=== PATIENT | male | born 1970 | race Caucasian/White ===

== ENCOUNTER 2018-03-19 13:33 | Emergency (ER) | payer MEDICAID ==
[~2018-03-19] VITALS: Ht 170.2 cm; Wt 95.2 kg
== END 2018-03-19 14:32 | disposition home or self-care (01) ==
LOC: ED 13:33
DX: S20.212A Contusion of left front wall of thorax, initial encounter (principal); F17.200 Nicotine dependence, unspecified, uncomplicated; V27.4XXA Motorcycle driver injured in collision with fixed or stationary object in traffic accident, initial encounter
CPT/HCPCS: 71101; 99283

== ENCOUNTER 2018-11-07 22:05 | Emergency (ER) | payer MEDICAID ==
[~2018-11-07] VITALS: Ht 170.2 cm; Wt 83.9 kg
[~2018-11-07 22:05] MED LIST: BACTRIM DS TAB1 EACH PO
[2018-11-08] MEDS ORDERED: BACTRIM DS TAB1 EACH PO (00:11)
[2018-11-08] MEDS ORDERED: CEPHALEXIN500 MG PO (00:11)
== END 2018-11-08 00:27 | disposition home or self-care (01) ==
LOC: ED 22:05
DX: L03.211 Cellulitis of face (principal); F43.10 Post-traumatic stress disorder, unspecified; F31.9 Bipolar disorder, unspecified; F17.200 Nicotine dependence, unspecified, uncomplicated
CPT/HCPCS: 87070; 87077; 87186; 99283

== ENCOUNTER 2018-11-09 21:24 | Emergency (ER) | payer MEDICAID ==
[~2018-11-09] VITALS: Ht 170.2 cm; Wt 83.9 kg
[~2018-11-09 21:24] MED LIST changes: +CEPHALEXIN500 MG PO
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
[2018-11-10] MEDS ORDERED: NORCO 5-325 TA1 EACH PO (00:19)
== END 2018-11-10 00:42 | disposition home or self-care (01) ==
LOC: ED 21:24
PROC: 0H91XZZ Drainage of Face Skin, External Approach (ICD-10-PCS; principal; 2018-11-10)
DX: L02.01 Cutaneous abscess of face (principal); F43.10 Post-traumatic stress disorder, unspecified; F31.9 Bipolar disorder, unspecified; F17.200 Nicotine dependence, unspecified, uncomplicated; Z79.899 Other long term (current) drug therapy
CPT/HCPCS: 10060; 80053; 85025; 96361; 96374; 96375; 99283-25; J2270; J2405; J3370; J7030

== ENCOUNTER 2019-09-19 01:01 | Emergency (ER) | payer MEDICAID ==
[~2019-09-19] VITALS: Ht 170.2 cm; Wt 83.9 kg
[~2019-09-19 01:01] MED LIST changes: +NORCO 5-325 TA1 EACH PO
--- OUTSIDE RECORDS SUMMARY | 2019-09-19 01:04 | XMS ---
PreManage Notification: MICHAEL FRANKLIN Security Customs Brokerage Manager Events No recent Security Events currently on file CRITERIA MET - [facility] CARE PROVIDERS Calin Smith Service And Repair Supervisor/Winding Inspector And Tester [facility] Team PHONE: [phone] Santos [facility]/Center: Federally Qualified 06/20/2017-[facility] ([facility]) PHONE: [phone] [facility] Primary Care 06/20/2017-[facility] PHONE: [phone] [facility] Mental Health Provider 06/20/2017-Current PHONE: Unknown [facility] 05/17/2016-Current [facility] [place] PHONE: [phone] [facility] 05/17/2016-Current [facility] [place] PHONE: [phone] [facility] 05/17/2016-Current [facility] [place] PHONE: [phone] [facility] Other 05/19/2016-Current PHONE: [phone] BO[facility] Primary Care 12/22/2013-Current PHONE: Unknown Babak has no Care Guidelines for this patient. Care History Medical/Surgical 11/13/2018 [facility] - [facility] CALLED PATIENT - HELP PATIENT WITH PCP - - [facility] LEFT PATIENT A VOICEMAIL. - [facility] WILL SEND PATIENT NO PCP LETTER. - PLEASE REFER PATIENT TO THE WALK IN CLINIC TO SIGN AN CONNER FOR RECORDS SO AN APT TO ESTABLISH CARE CAN BE SCHEDULED. Darren VISIT COUNT (12 MO.) 3 [facility] TOTAL 3 NOTE: Visits indicate total known visits. 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
[2019-09-19] MEDS ORDERED: BACTRIM DS TAB1 EACH PO (01:48)
[2019-09-19] MEDS ORDERED: NORCO 5-325 TA1 EACH PO (01:48)
== END 2019-09-19 02:18 | disposition home or self-care (01) ==
LOC: ED 01:01
PROC: 0H9FXZZ Drainage of Right Hand Skin, External Approach (ICD-10-PCS; principal; 2019-09-19)
DX: L02.511 Cutaneous abscess of right hand (principal); F43.10 Post-traumatic stress disorder, unspecified; F31.9 Bipolar disorder, unspecified; F17.200 Nicotine dependence, unspecified, uncomplicated
CPT/HCPCS: 10060; 99283-25

== ENCOUNTER 2019-10-02 12:42 | Emergency (ER) | payer MEDICAID ==
[~2019-10-02] VITALS: Ht 170.2 cm; Wt 83.9 kg
--- OUTSIDE RECORDS SUMMARY | 2019-10-02 12:46 | XMS ---
PreManage Notification: MICHAEL FRANKLIN Security Finisher Map And Chart Events No recent Security Events currently on file CRITERIA MET - [facility] - Has Care Guidelines - [facility] - 2 Visits in 30 Days CARE PROVIDERS Calin Smith Waste Water Worker/System Administration Manager [facility] Team PHONE: [phone] [facility]/Center: Federally Qualified 06/20/2017-[facility] ([facility]) PHONE: [phone] [facility] Primary Care 06/20/2017-[facility] - [facility] PHONE: [phone] [facility] Mental Health Provider 06/20/2017-Current PHONE: Unknown [facility] 05/17/2016-Current [facility] [place] PHONE: [phone] Primary Care 05/17/2016-Current [facility] [place] PHONE: [phone] [facility] Primary Care 05/17/2016-Current [facility] [place] PHONE: [phone] [facility] Other 05/19/2016-Current PHONE: [phone] BO[facility] Primary Care 12/22/2013-Current PHONE: Unknown Babak has no Care Guidelines for this patient. Care History Medical/Surgical 11/13/2018 [facility] - [facility] CALLED PATIENT - HELP PATIENT WITH PCP - - [facility] LEFT PATIENT A VOICEMAIL. - [facility] WILL SEND PATIENT NO PCP LETTER. - PLEASE REFER PATIENT TO THE WALK IN CLINIC TO SIGN AN CONNER FOR RECORDS SO AN APT TO ESTABLISH CARE CAN BE SCHEDULED. Darren VISIT COUNT (12 MO.) [address] [place] [address] TOTAL 4 NOTE: Visits indicate total known visits. ED/UCC VISIT TRACKING (12 MO.) 10/02/2019 12:44 [facility] [place] TYPE: Emergency COMPLAINT: - RIGHT HAND INJ/POSS INFECTION 09/19/2019 01:01 [facility] [place] TYPE: Emergency COMPLAINT: - SKIN PROBLEM DIAGNOSES: - Bipolar disorder, unspecified - Post-traumatic stress disorder, unspecified - Nicotine dependence, unspecified, uncomplicated - Cutaneous abscess of right hand 11/09/2018 21:25 [facility] [place] TYPE: Emergency COMPLAINT: - SORES IN MOUTH DIAGNOSES: - Bipolar disorder, unspecified - Nicotine dependence, unspecified, uncomplicated - Cutaneous abscess of face - Local infection of the skin and subcutaneous tissue, unsp - Other fpc (current) drug therapy - Post-traumatic stress disorder, unspecified 11/07/2018 22:06 [facility] [place] TYPE: Emergency COMPLAINT: - FACIAL/JAW SWELLING,INFECTION DIAGNOSES: - Nicotine dependence, unspecified, uncomplicated - Disorder of the skin and subcutaneous tissue, unspecified - Cellulitis of face - Bipolar disorder, unspecified - Post-traumatic stress disorder, unspecified INPATIENT VISIT TRACKING (12 MO.) No inpatient visits to display in this time frame [email or web address]
== END 2019-10-02 13:41 | disposition home or self-care (01) ==
LOC: ED 12:42
PROC: 0H9MXZZ Drainage of Right Foot Skin, External Approach (ICD-10-PCS; principal; 2019-10-02)
DX: L03.011 Cellulitis of right finger (principal); L02.511 Cutaneous abscess of right hand; F43.10 Post-traumatic stress disorder, unspecified; F31.9 Bipolar disorder, unspecified; F17.200 Nicotine dependence, unspecified, uncomplicated
CPT/HCPCS: 26010; 99283-25